=== PATIENT | male | born 1965 | race Caucasian/White ===

== ENCOUNTER 2017-11-26 00:21 | Emergency (ER) | payer OTHER ==
[~2017-11-26] VITALS: Ht 180.3 cm; Wt 111.2 kg
[2017-11-26 00:23] VITALS: BP 136/95; TEMP 36.4; Ht 180.3 cm; Wt 111.2 kg
[2017-11-26] MEDS ORDERED: PROPARACAINE HCL 0.5% OP SOLN 15 ML BTL ONE (00:32)
[2017-11-26] MEDS ORDERED: PROPARACAINE HCL 0.5% OP SOLN 15 ML BTL OP STA (00:32)
[2017-11-26 00:59] VITALS: PULSE 78; O2SAT 99
[2017-11-26] MEDS ORDERED: CIPROFLOXACIN HCL 0.3% OP SOLN 2.5 ML BTL OP ONE (01:00)
--- NOTE | 2017-11-27 02:47 | EMERGENCY ROOM VISIT NOTE ---
ED Visit Note First contact with patient: 00:30 CHIEF COMPLAINT: Foreign body of the eye HISTORY OF PRESENT ILLNESS: This 52 year old white male patient presents to the emergency department complaining of pain and foreign body sensation in the left eye. The patient was evidently working on his ceiling tonight and believes he may have gotten dust or something similar into his eye. He was wearing goggles. There has been a constant moderate pain and irritation, redness and tearing in the eye. The vision has not been decreased over all. The patient does not wear contacts. The patient rates the pain as 9/10. The patient has not had previous injuries to this eye. Tetanus shot is reportedly up to date. REVIEW OF SYSTEMS: A 6 system review of systems was completed with positives and pertinent negatives listed in the HPI. ALLERGIES: No known allergies MEDICATIONS: No chronic medication PMH: Otherwise healthy SOCIAL HISTORY: Employed and lives locally PHYSICAL EXAM: Vital Signs: Reviewed Nurse's notes, vital signs stable. GENERAL: This is a white male, in no acute distress, but who is uncomfortable from the eye problem. Well-developed well-nourished. EYES: The pupils are equal round and reactive to light and accommodation. EOMs are full and without tenderness. There is clear discharge from the left eye which is injected. There is a small foreign body visible on the cornea at 9:00. There is no foreign body visible under the eyelid after lid eversion. The cornea was otherwise clear and no hyphema was seen. Fluorescein uptake was observed with ultraviolet light significant for a corneal abrasion only around the previous location of the foreign body. EMERGENCY DEPARTMENT COURSE: I examined the patient. Alcaine 2 drops were placed in the patient's left eye. A slit lamp exam was performed as above. Verbal consent was obtained to perform the procedure. The foreign body was removed using a tuberculin needle and a cotton swab. Ciloxan two drops was placed in the patient's left eye. The patient was discharged home in good condition. He was offered pain medication but declined. He was given further instructions as below. Allergies Coded Allergies: No Known Allergies (Unverified , 01/28/16) Vital Signs Date Time Temp Pulse Resp B/P (MAP) Pulse Ox O2 Delivery O2 Flow Rate FiO2 11/26/17 00:59 78 18 99 11/26/17 00:23 36.4 93 20 136/95 97 Room Air Medications Administered Medications (Trade) Dose Ordered Sig/Jay Route Start Time Stop Time Status Last Admin Dose Admin Ciprofloxacin HCl (Ciprofloxacin 0.3% Op Soln) 2 drops NOW ONCE OP 11/26/17 01:00 11/26/17 01:01 DC 11/26/17 00:58 2 DROPS Departure Information Impression Primary Impression: Foreign body of left eye Dispostion Home / Self-Care Condition GOOD Referrals Silvia Reagan D.O. No Doctor, Assigned (PCP) Forms HOME CARE DOCUMENTATION FORM, IMPORTANT VISIT INFORMATION Patient Instructions My [facility] Additional Instructions You were seen and evaluated today on an emergency basis only. This is not a substitute for, or an effort to provide, complete comprehensive medical care. It is not possible to recognize and treat all injuries or illnesses in a single emergency department visit. For this reason it is recommended that you followup with your primary care physician or eye doctor with any ongoing or persisting symptoms. Use Ciloxan Eye Drops: Instill 1-2 drops into the conjunctival sac every 2 hours while awake for 2 days and 1-2 drops every 4 hours while awake for the next 5 days You are welcome to return to the emergency department anytime with new, worsening, or concerning symptoms.
== END 2017-11-26 01:00 | disposition home or self-care (01) ==
LOC: C.EDB 00:21 → C.EDC 01:00
DX: T15.02XA Foreign body in cornea, left eye, initial encounter (principal); X58.XXXA Exposure to other specified factors, initial encounter